=== PATIENT | male | born 1945 | race Caucasian/White ===

== ENCOUNTER 2018-11-14 10:00 | Emergency (ER) | payer MEDICARE, OTHER ==
--- NOTE | 2018-11-14 11:36 | ER Document Report ---
ED Extremity Problem, Lower - General Chief Complaint: Leg Pain Stated Complaint: LEG PAIN Time Seen by Provider: 11/14/18 11:02 Primary Care Provider: DONTA MCKINNON MD [Primary Care Provider] - Follow up as needed Notes: Pleasant 72-year-old male with history of DVT approximately 5 years ago on Coumadin presents to the emergency department after being sent over from his primary doctor with chief complaint of pain in his left leg. He states that the pain starts in his gluteus in the area of the SI joint and radiates down his leg. 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 He states that the pain has been significant since Saturday and he has been unable to sleep. He states that it starts in his L5-S1 area mid back radiates along the SI joint around to his anterior thigh and down to his leg. He states he currently has very minimal pain but it is deep. He said nothing provokes or palliates it. He has not taken anything for it. He denies any unilateral leg swelling, redness to the leg, warmth, fevers, chills, nausea, vomiting, shortness of breath or chest pain, numbness or paresthesias in his arms or legs, headaches, dizziness or lightheadedness, weakness, urinary symptoms, urinary retention, saddle paresthesia, bowel incontinence. TRAVEL OUTSIDE OF THE [place] IN LAST 30 DAYS: No - Related Data Allergies/Adverse Reactions: No Known Allergies Allergy (Verified 11/14/18 10:01) Past Medical History - Social History Smoking Status: Unknown if Ever Smoked Family History: None - Past Medical History Cardiac Medical History: Reports: Hx DVT, Hx Hypercholesterolemia, Hx Hypertension Pulmonary Medical History: Denies: Hx Tuberculosis Endocrine Medical History: Reports: Hx Diabetes Mellitus Type 2 GI Medical History: Reports: Hx Irritable Bowel Past Surgical History: Reports: Hx Cholecystectomy. Denies: Hx Pacemaker - Immunizations Immunizations up to date: Yes Hx Pneumococcal Vaccination: 06/10/08 Review of Systems - Review of Systems Constitutional: See HPI EENT: No symptoms reported Cardiovascular: See HPI Respiratory: See HPI Gastrointestinal: See HPI Genitourinary: See HPI Male Genitourinary: No symptoms reported Musculoskeletal: See HPI Skin: See HPI Hematologic/Lymphatic: No symptoms reported Neurological/Psychological: See HPI Physical Exam - Vital signs Vitals: Temp Pulse Resp BP Pulse Ox 98.1 F 71 16 169/88 H 94 11/14/18 10:14 11/14/18 10:14 11/14/18 10:14 11/14/18 10:14 11/14/18 10:14 - Notes Notes: PHYSICAL EXAMINATION: Reviewed vital signs and charting by RN GENERAL: Alert, interacts well. No acute distress. HEAD: Normocephalic, atraumatic. EYES: Pupils equal, round, and reactive to light. Extraocular movements intact. ENT: Oral mucosa moist, tongue midline. NECK: Full range of motion. Supple. Trachea midline. LUNGS: Clear to auscultation bilaterally, no wheezes, rales, or rhonchi. No re spiratory distress. HEART: Regular rate and rhythm. No murmur ABDOMEN: soft, non-tender. No distention. Bowel sounds present EXTREMITIES: Moves all 4 extremities spontaneously. No edema, No cyanosis. Tenderness along the left SI joint but patient ambulates without problem. He initially did complain of some left calf tenderness prior to this radiating pain. PSYCH: Normal affect, normal mood. SKIN: Warm, dry, normal turgor. No rashes or lesions noted. Course - Re-evaluation Re-evalutation: 11/14/18 11:36 Overall well-appearing. I do suspect that this patient does have lower back pain with radiculopathy down his left leg but because of the patient's history and initial presentation with some left calf aching out of an abundance of caution I will get the venous Doppler of the left lower extremity. I have low suspicion as the patient is on Coumadin so I am also going to get a baseline INR for him. I will also place a Lidoderm patch over the area where he is having pain and give him some Tylenol. 11/14/18 11:52 Received a verbal from the delivery recruiter that he is negative for DVT. Patient symptoms most likely related to lower back pain with radiculopathy. I will give him a prescription for Lidoderm patches and pending CMP, will instructions for Motrin and Tylenol for pain and inflammation. 11/14/18 12:10 Lab work overall unremarkable, creatinine is 1.55 up from a previous visit. At this time I will instruct him to hold off taking Motrin until he sees his primary doctor. - Vital Signs Vital signs: Temp Pulse Resp BP Pulse Ox 98.1 F 71 16 169/88 H 94 11/14/18 10:14 11/14/18 10:14 11/14/18 10:14 11/14/18 10:14 11/14/18 10:14 - Laboratory Result Diagrams: 11/14/18 11:30 11/14/18 11:30 Laboratory results interpreted by me: 11/14/18 11/14/18 11:30 11:30 PT 19.6 H BUN 27 H Creatinine 1.55 H Est GFR ( Amer) 54 L Est GFR (Non-Af Amer) 44 L ALT 19 L Discharge - Discharge Clinical Impression: Lower back pain Qualifiers: Chronicity: acute Back pain laterality: left Sciatica presence: with sciatica Sciatica laterality: sciatica of left side Qualified Code(s): M54.42 - Lumbago with sciatica, left side Condition: Good Disposition: HOME, SELF-CARE Additional Instructions: You have been seen in the Emergency Department (ED) today for back pain. Your workup and exam have not shown any acute abnormalities and you are likely suffering from muscle strain or possible problems with your discs, but there is no treatment that will fix your symptoms at this time. Please take Motrin 600 mg every 6 hours with food or milk and/or Tylenol 1000 mg every 6 hours for pain. You should also purchase a local lidocaine cream such as "aspercreme with lidocaine" and use per bottle instructions to the affected area. Apply heat to the area as often as you are able. Continue to keep active and avoid prolonged periods of bed rest. Please follow up with your doctor as soon as possible regarding today's ED visit and your back pain. Return to the ED for worsening back pain, fever, weakness or numbness of either leg, or if you develop either (1) an inability to urinate or have bowel movements, or (2) loss of your ability to control your bathroom functions (if you start having "accidents"), or if you develop other new symptoms that concern you.concern you. Referrals: DONTA MCKINNON MD [Primary Care Provider] - Follow up as needed
[2018-11-14] MEDS ORDERED: ACETAMINOPHEN 325 MG TABLET PO ONE (11:37)
[2018-11-14 11:42] LABS: HEMATOCRIT 44.2 % (37.9-51.0); HEMOGLOBIN 15.1 g/dL (13.5-17.0); MEAN CORPUSCULAR HEMOGLOBIN 31.1 pg (27.0-33.4); MEAN CORPUSCULAR HGB CONC 34.3 g/dL (32.0-36.0); MEAN CORPUSCULAR VOLUME 91 fl (80-97); PLATELET COUNT 250 10^3/uL (150-450); RED BLOOD COUNT 4.87 10^6/uL (4.35-5.55); RED CELL DISTRIBUTION WIDTH 13.7 % (11.5-14.0); WHITE BLOOD COUNT 7.5 10^3/uL (4.0-10.5)
[2018-11-14 12:01] LABS: INTERNATIONAL RATION (INR) 1.58; PROTHROMBIN TIME 19.6 SEC (11.4-15.4)
[2018-11-14 12:05] LABS: ALANINE AMINOTRANSFERASE 19 U/L (21-72); ALBUMIN 4.4 g/dL (3.5-5.0); ALKALINE PHOSPHATASE 52 U/L (38-126); ANION GAP 12 (5-19); ASPARTATE AMINO TRANSFERASE 20 U/L (17-59); BILIRUBIN,DIRECT 0.3 mg/dL (0.0-0.4); BILIRUBIN,TOTAL 1.1 mg/dL (0.2-1.3); BLOOD UREA NITROGEN 27 mg/dL (7-20); CALCIUM 9.5 mg/dL (8.4-10.2); CARBON DIOXIDE 28 mmol/L (22-30); CHLORIDE 102 mmol/L (98-107); GLUCOSE 97 mg/dL (75-110); SODIUM 141.7 mmol/L (137-145); TOTAL PROTEIN 7.3 g/dL (6.3-8.2)
[2018-11-14] MEDS ORDERED: LIDOCAINE 5% (700 MG) TRANSDERMAL ADH..PATCH TP ONE (12:16)
[2018-11-14 12:26] VITALS: BP 164/77
--- NOTE | 2018-11-14 12:54 | XCELERA REPORT ---
[address] [place] [facility] [address] Lower Extremity Venous Evaluation Procedure: Color flow and duplex imaging of the veins of the left lower extremity as well as the right Common Femoral vein. Right Sided Venous Evaluation The right common femoral vein is fully compressible. Spontaneous and phasic flow is present in the right common femoral vein. Left Sided Venous Evaluation Normal vessel filling wall to wall, compression and augmentation as well as Colour flow down to the infrageniculate veins. Interpretation Summary No duplex evidence of DVT or obstruction in the left lower extremity nor in the right Common Femoral vein. Name: SIDDHARTHA ALMARAZ Age: 72 yrs Gender: Male : 1945 Patient Status: Emergency Patient Location: ER Study Date: 11/14/2018 11:35 AM Reason For Study: LLE pain/hx DVT Ordering Physician: NATALIE MARIE Performed By: Steven Soares : NATALIE MARIE > Driss Le
== END 2018-11-14 12:33 | disposition home or self-care (01) ==
LOC: ER 10:00
DX: M54.42 Lumbago with sciatica, left side (principal); Z86.718 Personal history of other venous thrombosis and embolism; Z79.01 Long term (current) use of anticoagulants; I10 Essential (primary) hypertension; E11.9 Type 2 diabetes mellitus without complications
CPT/HCPCS: 99284; 36415; 85027; 85610; 80053; 93971 ×2; A9270

== ENCOUNTER → 2018-12-10 | Outpatient (CLI) | payer MEDICARE, OTHER ==
[2018-12-10 15:41] LABS: HEMATOCRIT 38.6 % (37.9-51.0); HEMOGLOBIN 13.3 g/dL (13.5-17.0); MEAN CORPUSCULAR HEMOGLOBIN 31.4 pg (27.0-33.4); MEAN CORPUSCULAR HGB CONC 34.4 g/dL (32.0-36.0); MEAN CORPUSCULAR VOLUME 91 fl (80-97); PLATELET COUNT 233 10^3/uL (150-450); RED BLOOD COUNT 4.23 10^6/uL (4.35-5.55); WHITE BLOOD COUNT 7.7 10^3/uL (4.0-10.5)
[2018-12-10 15:46] LABS: APPEARANCE,URINE CLEAR; BILIRUBIN,URINE NEGATIVE (NEGATIVE); COLOR,URINE YELLOW; GLUCOSE, URINE NEGATIVE (NEGATIVE); KETONES,URINE NEGATIVE (NEGATIVE); LEUKOCYTE ESTERASE,URINE NEGATIVE (NEGATIVE); NITRITE,URINE NEGATIVE (NEGATIVE); PROTEIN,URINE NEGATIVE (NEGATIVE); URINE SPECIFIC GRAVITY 1.016; UROBILINOGEN,URINE NEGATIVE mg/dL (<2.0)
[2018-12-10 16:12] LABS: ALANINE AMINOTRANSFERASE 21 U/L (21-72); ALBUMIN 3.8 g/dL (3.5-5.0); ALKALINE PHOSPHATASE 45 U/L (38-126); ANION GAP 8 (5-19); ASPARTATE AMINO TRANSFERASE 22 U/L (17-59); BILIRUBIN,DIRECT 0.2 mg/dL (0.0-0.4); BILIRUBIN,TOTAL 0.5 mg/dL (0.2-1.3); BLOOD UREA NITROGEN 22 mg/dL (7-20); CALCIUM 8.8 mg/dL (8.4-10.2); CARBON DIOXIDE 29 mmol/L (22-30); CHLORIDE 105 mmol/L (98-107); GLUCOSE 89 mg/dL (75-110); SODIUM 141.7 mmol/L (137-145); TOTAL PROTEIN 6.3 g/dL (6.3-8.2)
== END ==
LOC: OD 14:43
PROVIDERS: ATTEND Internal Medicine Nephrology
DX: I12.9 Hypertensive chronic kidney disease with stage 1 through stage 4 chronic kidney disease, or unspecified chronic kidney disease (principal); N18.3 Chronic kidney disease, stage 3 (moderate); E11.22 Type 2 diabetes mellitus with diabetic chronic kidney disease
CPT/HCPCS: 36415; 80053; 81001; 85027

== ENCOUNTER → 2019-05-28 | Outpatient (CLI) | payer MEDICARE, OTHER ==
--- NOTE | 2019-05-29 16:25 | RADIOLOGY REPORT (SQ) ---
EXAM DESCRIPTION: U/S THYROID/SFT TISS HD NECK COMPLETED DATE/TIME: 05/28/2019 6:20 pm REASON FOR STUDY: (E07.89)OTHER SPECIFIED DISORDERS OF THYROID E07.89 OTHER SPECIFIED DISORDERS OF THYROID COMPARISON: None. TECHNIQUE: Dynamic and static estrada-scale images acquired of the thyroid gland. Selected additional c olor/power Doppler images recorded. All images stored to PACS. LIMITATIONS: None. FINDINGS: RIGHT LOBE: The right lobe of the thyroid gland is enlarged and it measures 8.6 x 3.5 x 4 cm. The echotexture of the lobe is heterogeneous and there are several nodules ; these include: A solid isoechoic nodule with internal Doppler flow located in the midportion of the lobe that measur es 2.9 x 1.8 x 3 cm, is wider than tall, has smooth margins, and contains no echogenic foci (TR 3). A solid isoechoic nodule with internal Doppler flow located in the midportion of the lobe that measur es 1.4 x 1.3 x 1.2 cm, is wider than tall, has smooth margins, and contains no echogenic foci (TR3). LEFT LOBE: The left lobe of the thyroid gland is enlarged and it measures 6.7 x 4.6 x 4.3 cm. The ec hotexture of the lobe is heterogeneous and there are several nodules ; these include: A mixed cystic and solid isoechoic nodule with internal Doppler flow located in the superior pole of the t lobe aimee t measures 2.6 x 2.1 x 2.7 cm, is wider than tall, has smooth margins, and contains no echogenic foci (TR 2). ISTHMUS: The isthmus of the thyroid gland measures 18 mm in AP diameter. The echotexture of the isth mus is heterogeneous. There is a mixed cystic and solid isoechoic nodule with internal Doppler flow in the isthmus that measures 3.8 x 3.2 x 3.8 cm ; the nodule is wider than tall, has smooth margins, and contains no echogenic foci (TR2). OTHER: No other finding. IMPRESSION: Multinodular goiter as detailed above.= TECHNICAL DOCUMENTATION: JOB ID: [id number] [employer]- All Rights Reserved Reading location - IP/workstation name: [email or web address]
== END ==
LOC: RAD 17:15
PROVIDERS: ATTEND Otolaryngology
DX: E07.89 Other specified disorders of thyroid (principal); E04.2 Nontoxic multinodular goiter
CPT/HCPCS: 76536

== ENCOUNTER → 2019-07-08 | Day surgery (SDC) | payer MEDICARE, OTHER ==
--- NOTE | 2019-07-08 16:38 | RADIOLOGY REPORT (SQ) ---
EXAM DESCRIPTION: U/S BIOPSY THYROID COMPLETED DATE/TIME: 07/08/2019 3:22 pm REASON FOR STUDY: THYROID GOITER (E04.9) E04.9 NONTOXIC GOITER, UNSPECIFIED COMPARISON: None. TECHNIQUE: The procedure was discussed with the patient and written informed consent obtained. A ti meout was performed to confirm the procedure and patient's identity. The skin of the neck was preppe d and draped in sterile fashion and 8 cc of 1% lidocaine was administered for local anesthesia. Unde r sonographic guidance, fine needle aspiration biopsy was performed of the 2.9 cm solid TI rads 3 nod ule within the right lobe of the thyroid. 2 separate aspirations were performed. Hemostasis was obtained with direct manual compression. Ther e were no immediate complications. LIMITATIONS: None. FINDINGS: PATHOLOGY: Pending. IMPRESSION: ULTRASOUND-GUIDED BIOPSY PERFORMED OF THE 2.9 CM SOLID (TI RADS 3) NODULE WITHIN THE RIG HT LOBE OF THE THYROID. PATHOLOGY PENDING AT THE TIME OF DICTATION. SEE FOLLOW-UP RECOMMENDATIONS BELOW FOR ADDITIONAL NODULES. COMMENT: The [employer] ([employer]) Thyroid Imaging Reporting And Data System (TI-RADS ) is an ultrasound feature based summed scoring system of risk categorization and management recommen dations for thyroid nodules. TI-RADS assessment categories are as follows: 0 - Incomplete exam: Additional imaging or comparison to prior examinations recommended. 1. - Benign: Fine-needle aspiration or follow-up not routinely recommended in the absence of clinical change. 2. - Not suspicious: Fine-needle aspiration or follow-up not routinely recommended in the absence of clinical change. 3. - Mildly suspicious: Fine-needle aspiration recommended if greater than or equal to 2.5 cm in size . Ultrasound follow-up recommended if greater than or equal to 1.5 cm in size. 4. - Moderately suspicious: Fine-needle aspiration recommended if greater than or equal to 1.5 cm in size. Ultrasound follow-up recommended if greater than or equal to 1.0 cm in size. 5. - Highly suspicious: Fine-needle aspiration recommended if greater than or equal to 1.0 cm in size . Ultrasound follow-up recommended if greater than or equal to 0.5 cm in size. Patient medication list reviewed: Yes- Quality ID# [id number]:Eligible professional attests to documenting i n the medical record they obtained, updated, or reviewed the patient's current medications. TECHNICAL DOCUMENTATION: JOB ID: [id number] [employer]- All Rights Reserved Reading location - IP/workstation name: [email or web address]
== END ==
LOC: RAD 11:39
PROVIDERS: ATTEND Otolaryngology
DX: E04.9 Nontoxic goiter, unspecified (principal); Z79.84 Long term (current) use of oral hypoglycemic drugs; Z79.899 Other long term (current) drug therapy; Z79.82 Long term (current) use of aspirin; E11.9 Type 2 diabetes mellitus without complications
CPT/HCPCS: 60100; 88173

== ENCOUNTER → 2019-07-15 | Outpatient (CLI) | payer MEDICARE, OTHER ==
[2019-07-15 10:54] LABS: ABSOLUTE EOSINOPHILS # (AUTO) 0.1 10^3/uL (0.0-0.6); ABSOLUTE LYMPHOCYTES (AUTO) 1.4 10^3/uL (0.5-4.7); ABSOLUTE MONOCYTES (AUTO) 0.6 10^3/uL (0.1-1.4); ABSOLUTE NEUT (AUTO) 3.4 10^3/uL (1.7-8.2); BASOPHILS % (AUTO) 0.5 % (0-2); EOSINOPHILS % (AUTO) 1.5 % (0-6); HEMATOCRIT 42.6 % (37.9-51.0); HEMOGLOBIN 15.1 g/dL (13.5-17.0); LYMPHOCYTES % (AUTO) 25.2 % (13-45); MEAN CORPUSCULAR HEMOGLOBIN 31.8 pg (27.0-33.4); MEAN CORPUSCULAR HGB CONC 35.3 g/dL (32.0-36.0); MEAN CORPUSCULAR VOLUME 90 fl (80-97); MONOCYTES % (AUTO) 10.3 % (3-13); PLATELET COUNT 231 10^3/uL (150-450); RED BLOOD COUNT 4.73 10^6/uL (4.35-5.55); RED CELL DISTRIBUTION WIDTH 13.1 % (11.5-14.0); SEGMENTED NEUTROPHILS % (AUTO) 62.5 % (42-78); TOTAL CELLS COUNTED % (AUTO) 100 %; WHITE BLOOD COUNT 5.5 10^3/uL (4.0-10.5)
[2019-07-15 11:13] LABS: ANION GAP 9 (5-19); BLOOD UREA NITROGEN 26 mg/dL (7-20); CALCIUM 9.3 mg/dL (8.4-10.2); CARBON DIOXIDE 27 mmol/L (22-30); CHLORIDE 103 mmol/L (98-107); GLUCOSE 110 mg/dL (75-110); PHOSPHORUS 3.4 mg/dL (2.5-4.5)
== END ==
LOC: OD 10:10
PROVIDERS: ATTEND Internal Medicine Nephrology
DX: E11.22 Type 2 diabetes mellitus with diabetic chronic kidney disease (principal); I12.9 Hypertensive chronic kidney disease with stage 1 through stage 4 chronic kidney disease, or unspecified chronic kidney disease; N18.3 Chronic kidney disease, stage 3 (moderate)
CPT/HCPCS: 36415; 80069; 85025